=== PATIENT | male | born 1975 | race Caucasian/White ===

== ENCOUNTER 2024-08-13 11:28 | Emergency (ER) | payer MEDICAID ==
[~2024-08-13] VITALS: Ht 167.6 cm; Wt 91.8 kg
[2024-08-13 11:40] VITALS: BP 162/112; PULSE 105; RESP 18; O2SAT 97
--- NOTE | 2024-08-13 12:15 | RADIOLOGY REPORT ---
EXAM: DI SACRUM COCCYX HISTORY: fall COMPARISON: None TECHNIQUE: Three views of the sacrum and coccyx were performed. FINDINGS/IMPRESSION: No displaced fracture is identified about the sacrum or coccyx.
[2024-08-13] MEDS: ketorolac trometh 30MG/ML vial 30 MG/ML VIAL IM STA (13:33)
--- NOTE | 2024-08-13 14:10 | Physician Documentation ---
History of Present Illness ~ Chief Complaint: Back Pain Stated Complaint: TAILBONE PAIN Time Seen by MD: 12:23 HPI Patient is seen today with complaints of having tripped and stumbled backwards while trimming some bushes at his mother's property any fell back onto his tailbone onto a rock. Patient states this occurred from ground level. Patient denies any saddle anesthesia or changes in bowel or bladder habits. He states he is having a lot of pain and difficulty bending down to pick things up now. He has no other concern or complaint at this time. Medication Reconciliation Allergies: Coded Allergies: clindamycin (Verified Allergy, Unknown, 08/13/24) cyclobenzaprine (Verified Allergy, Unknown, 08/13/24) Review of Systems Constitutional: Denies: chills, fever, weakness Eyes: Denies: pain, blurred vision ENT: Denies: ear pain, nose pain, throat pain, mouth pain Respiratory: Denies: cough, shortness of breath Cardiovascular: Denies: chest pain, palpitations Gastrointestinal: Denies: abdominal pain, nausea, vomiting Genitourinary: Denies: burning, dysuria Male Genitalia: Denies: penile discharge, testicular pain Neurological: Denies: headache, dizziness Musculoskeletal: Denies: pain, swelling Integumentary: Denies: rash, lesions Allergic/Immunologic: Denies: hives, itching Hematologic/Lymphatic: Denies: no symptoms reported Psychiatric: Denies: depression, anxiety Physical Exam Physical Exam Vital Signs: Temperature: 97.8, Source: Temporal, Heart Rate: 105, Respiratory Rate: 18, BP: 162/112, Pulse Oximetry: 97, Weight: 91.820 Physical Exam General: Awake and Alert, no acute distress. HEENT: Conjunctiva pink, Sclera clear, Mucus Membranes moist. Neck: Supple without masses and tenderness. Resp: Unlabored. Lungs clear to auscultation bilaterally. Heart: Regular Rate and rhythm, normal S1 and S2 without murmur, rub or gallop. Musculoskeletal: Patient on exam has significant decreased range of motion of the lumbar spine in all planes of motion due to pain. Patient has significant tenderness to palpation of the coccyx. Patient is neurovascularly intact distally. Motor function is intact distally. Extremities: No cyanosis,clubbing or edema. Skin: Warm and Dry. Progress Results/Orders Results/Orders Orders - CALLI LOPEZ PAC Sacrum & Coccyx (08/13/24 ) Completed Orders - CALLI LOPEZ PAC Sacrum & Coccyx (08/13/24 ) Drug Screen, Urine (08/13/24 13:33) Ketorolac Trometh 30mg/Ml Vial (Toradol (08/13/24 13:33) Hydrocodone/Apap 10/325 (Aurora 10/325mg (08/13/24 13:33) Acetaminophen 325mg Tablet (Tylenol Tabl (08/13/24 13:33) Medications Received in ER Medications (Trade) Dose Ordered Sig/Fidelia Route PRN Reason Start Time Stop Time Status Last Admin Dose Admin (Aurora 10/325mg tab) 1 tab ONCE STAT PO 08/13/24 13:33 08/13/24 13:38 DC 08/13/24 14:43 1 TAB (Tylenol tablet) 650 mg ONCE STAT PO 08/13/24 13:33 08/13/24 13:43 DC 08/13/24 14:43 650 MG Vital Signs 08/13/24 11:40 Temp 97.8 Pulse 105 Resp 18 B/P (MAP) 162/112 Pulse Ox 97 Laboratory Tests Test 08/13/24 13:43 Urine Opiates Screen Negative Urine Methadone Screen Negative Urine Fentanyl Screen Negative Urine Barbiturates Screen Negative Urine Phencyclidine Screen Negative Urine Amphetamines Screen Negative Urine Benzodiazepines Screen Positive Urine Cocaine Screen Negative Urine Cannabinoids Screen Negative Drug Screen Comment EKG/XRAY/CT/US/VASC/MRI Bone/Soft Tissue X-Ray (Spine) : Additional Comment DIAGNOSTIC RADIOLOGY Patient: CATE MARCANO JR Prado Medical Record: [id number] : 1975, Age: 49 Sex: Male Location: ER Patient Status: REG ER Service Date/Time: 08/13/24/ 0000 Ordering Physician: CALLI LOPEZ PAC Exam: SACRUM & COCCYX EXAM: DI SACRUM COCCYX HISTORY: fall COMPARISON: None TECHNIQUE: Three views of the sacrum and coccyx were performed. FINDINGS/IMPRESSION: No displaced fracture is identified about the sacrum or coccyx. Electronically Signed by:ERI EVANS MD Date & Time: 08/13/241211 Dictated by: ERI EVANS MD Dictation date and time: 08/13/241211 Primary Care Provider: NO PRIMARY CARE PROVIDER cc: CALLI LOPEZ PAC ~ Medical Decision Making Findings Patient is seen today with complaints of having tripped and stumbled backwards while trimming some bushes at his mother's property any fell back onto his tailbone onto a rock. Patient states this occurred from ground level. Patient denies any saddle anesthesia or changes in bowel or bladder habits. He states he is having a lot of pain and difficulty bending down to pick things up now. He has no other concern or complaint at this time. Patient did have x-ray of coccyx that showed no displaced fracture. Patient was treated with a Aurora 10/325 mg in the ED today. Patient given Tylenol 650 mg p.o., Prescription of Aurora 10/325 mg sent to patient pharmacy. Patient also given Toradol 30 mg IM in the ED today. Patient will follow up with primary care in 2-5 days if no better as needed sooner. Return to ED with any worsening, concerning or changing symptoms. Departure Disposition: 01 HOME / SELF CARE / HOMELESS Impression: Primary Impression: Coccyx pain Condition: Improved Discharge Instructions: Low Back Sprain or Strain Rehab Additional Instructions: Patient did have x-ray of coccyx that showed no displaced fracture. Patient was treated with a Aurora 10/325 mg in the ED today. Patient given Tylenol 650 mg p.o., Prescription of Aurora 10/325 mg sent to patient pharmacy. Patient also given Toradol 30 mg IM in the ED today. Patient will follow up with primary care in 2-5 days if no better as needed sooner. Return to ED with any worsening, concerning or changing symptoms. Referrals: NO PRIMARY CARE PROVIDER (PCP) Prescriptions Hydrocodone Bit/Acetaminophen (Hydrocodone-Apap 10-325 Tablet) 10mg/325mg Tablet 1 TAB PO QID PRN PRN for pain for 5 Days, #20 TAB Prov: CALLI LOPEZ 08/13/24 Meloxicam (Meloxicam) 15 Mg Tablet 1 TAB PO DAILY for 30 Days, #30 TAB 0 Refills Prov: CALLI LOPEZ 08/13/24 Signature Scribe Signature: No scribe Attestation: No scribe CALLI LOPEZ Aug 13, 2024 14:10
[2024-08-13 14:38] LABS: URINE AMPHETAMINE SCREEN NEGATIVE (Neg); URINE BARBITUATE SCREEN NEGATIVE (Neg); URINE BENZODIAZEPINES SCREEN POSITIVE (Neg); URINE CANNABINOID SCREEN NEGATIVE (Neg); URINE COCAINE SCREEN NEGATIVE (Neg); URINE METHADONE SCREEN NEGATIVE (Neg); URINE OPIATE SCREEN NEGATIVE (Neg); URINE PHENCYCLIDINE SCREEN NEGATIVE (Neg)
[2024-08-13] MEDS: HYDROcodone/acetaminophen 10/325mg tab PO STA (14:43)
[2024-08-13] MEDS: acetaminophen 325mg tablet PO STA (14:43)
[2024-08-13] MEDS ORDERED: HYDR-3973 PO (14:54)
[2024-08-13] MEDS ORDERED: MELO-102 PO (14:54)
[2024-08-13 15:05] VITALS: TEMP 97.8
== END 2024-08-13 15:06 | disposition home or self-care (01) ==
LOC: ER 11:29
DX: M53.3 Sacrococcygeal disorders, not elsewhere classified (principal); Z88.1 Allergy status to other antibiotic agents; Z88.8 Allergy status to other drugs, medicaments and biological substances; W18.09XA Striking against other object with subsequent fall, initial encounter; Y93.89 Activity, other specified; Y92.89 Other specified places as the place of occurrence of the external cause; Y99.8 Other external cause status
CPT/HCPCS: 72220; 80305; 99284

== ENCOUNTER 2024-08-17 14:23 | Emergency (ER) | payer MEDICAID ==
[~2024-08-17] VITALS: Ht 170.2 cm; Wt 103.2 kg
[~2024-08-17 14:23] MED LIST: HYDR-3973 PO; MELO-102 PO
[2024-08-17 14:29] VITALS: PULSE 97; TEMP 99.2; O2SAT 98
--- NOTE | 2024-08-17 14:36 | Physician Documentation ---
History of Present Illness ~ Chief Complaint: Back Pain Stated Complaint: TAIL BONE PAIN Time Seen by MD: 14:43 HPI Patient is seen today with complaints of tailbone pain for over a week. Patient states he was seen here in the ER recently and prescribed Claiborne and states that is not touching the pain. Patient denies any saddle anesthesia or changes in bowel or bladder habits or chest pain or shortness of breath or nausea, vomiting, diarrhea. Patient has no other concern or complaint at this time. Medication Reconciliation Allergies: Coded Allergies: clindamycin (Verified Allergy, Unknown, 08/13/24) cyclobenzaprine (Verified Allergy, Unknown, 08/13/24) Scheduled Meloxicam (Meloxicam), 1 TAB PO DAILY Scheduled PRN Hydrocodone Bit/Acetaminophen (Hydrocodone-Apap 10-325 Tablet), 1 TAB PO QID PRN PRN for pain Hydrocodone Bit/Acetaminophen (Hydrocodone-Apap 10-325 Tablet), 1 TAB PO QID PRN PRN for pain Review of Systems Constitutional: Denies: chills, fever, weakness Eyes: Denies: pain, blurred vision ENT: Denies: ear pain, nose pain, throat pain, mouth pain Respiratory: Denies: cough, shortness of breath Cardiovascular: Denies: chest pain, palpitations Gastrointestinal: Denies: abdominal pain, nausea, vomiting Genitourinary: Denies: burning, dysuria Male Genitalia: Denies: penile discharge, testicular pain Neurological: Denies: headache, dizziness Musculoskeletal: Denies: pain, swelling Integumentary: Denies: rash, lesions Allergic/Immunologic: Denies: hives, itching Hematologic/Lymphatic: Denies: no symptoms reported Psychiatric: Denies: depression, anxiety Physical Exam Physical Exam Vital Signs: Temperature: 99.2, Source: Oral, Heart Rate: 97, Respiratory Rate: 18, Pulse Oximetry: 98, Weight: 103.200 Physical Exam General: Awake and Alert, no acute distress. HEENT: Conjunctiva pink, Sclera clear, Mucus Membranes moist. Neck: Supple without masses and tenderness. Musculoskeletal: Patient has significant tenderness to palpation of the tailbone. Patient has near full range of motion of the lumbar spine in all planes of motion. Patient is neurovascularly intact distally. Strength and motor function intact distally. Extremities: No cyanosis,clubbing or edema. Skin: Warm and Dry. Progress Results/Orders Results/Orders Completed Orders - CALLI LOPEZ Hydrocodone/Apap 10/325 (Claiborne 10/325mg (08/17/24 15:54) Medications Received in ER Medications (Trade) Dose Ordered Sig/Fidelia Route PRN Reason Start Time Stop Time Status Last Admin Dose Admin (Claiborne 10/325mg tab) 1 tab ONCE STAT PO 08/17/24 15:54 08/17/24 15:59 DC 08/17/24 16:04 1 TAB Vital Signs 08/17/24 08/17/24 14:29 16:04 Temp 99.2 Pulse 97 Resp 18 16 Pulse Ox 98 Medical Decision Making Findings Patient is seen today with complaints of tailbone pain for over a week. Patient states he was seen here in the ER recently and prescribed Claiborne and states that is not touching the pain. Patient denies any saddle anesthesia or changes in bowel or bladder habits or chest pain or shortness of breath or nausea, vomiting, diarrhea. Patient has no other concern or complaint at this time. Patient and I had a long conversation about risks versus benefits of opiate use. Patient was given dose of Claiborne 10/325 mg by mouth in the ED today. One final prescription for Claiborne was sent to patient's pharmacy. Patient understands he will need to follow up with his primary care after this. Patient voiced understanding. Patient declined CT scan at this time. Departure Disposition: HOME / SELF CARE / HOMELESS Impression: Primary Impression: Coccyx pain Condition: Stable Discharge Instructions: Lumbosacral Strain Additional Instructions: Patient and I had a long conversation about risks versus benefits of opiate use. Patient was given dose of Claiborne 10/325 mg by mouth in the ED today. One final prescription for Claiborne was sent to patient's pharmacy. Patient understands he will need to follow up with his primary care after this. Patient voiced understanding. Patient declined CT scan at this time. Referrals: NO PRIMARY CARE PROVIDER (PCP) Prescriptions Hydrocodone Bit/Acetaminophen (Hydrocodone-Apap 10-325 Tablet) 10mg/325mg Tablet 1 TAB PO QID PRN PRN for pain for 5 Days, #20 TAB Prov: CALLI LOPEZ 08/17/24 Hydrocodone Bit/Acetaminophen (Hydrocodone-Apap 10-325 Tablet) 10mg/325mg Tablet 1 TAB PO QID PRN PRN for pain for 5 Days, #20 TAB Prov: CALLI LOPEZ 08/17/24 Signature Scribe Signature: No scribe Attestation: No scribe CALLI LOPEZ PAC Aug 17, 2024 14:36
[2024-08-17 16:04] VITALS: RESP 16
[2024-08-17] MEDS: HYDROcodone/acetaminophen 10/325mg tab PO STA (16:04)
[2024-08-17] MEDS ORDERED: HYDR-3973 PO (17:39)
== END 2024-08-17 16:15 | disposition home or self-care (01) ==
LOC: ER 14:23
DX: M53.3 Sacrococcygeal disorders, not elsewhere classified (principal); Z88.1 Allergy status to other antibiotic agents; Z79.899 Other long term (current) drug therapy
CPT/HCPCS: 99283